=== PATIENT | male | born 1990 | race Two or more races ===

== ENCOUNTER 2025-02-13 19:01 | Emergency (ER) | payer BC ==
[~2025-02-13] VITALS: Ht 162.6 cm; Wt 83.9 kg
[2025-02-13] MEDS ORDERED: CEFTRIAXONE SODIUM 1,000 MG VIAL IM STA (21:34)
== END 2025-02-13 22:11 | disposition home or self-care (01) ==
LOC: ER 19:02
DX: L03.818 Cellulitis of other sites (principal)